=== PATIENT | female | born 1990 | race Asian ===

== ENCOUNTER 2016-12-04 18:20 | Inpatient (IN) | payer OTHER ==
[~2016-12-04] VITALS: Ht 144.8 cm; Wt 51.2 kg
[~2016-12-04 18:20] MED LIST: BC IMPLANT; LEVE500 PO
[2016-12-04 18:46] VITALS: BP 122/77; PULSE 99; RESP 14; TEMP 98.9; O2SAT 98
[2016-12-04] MEDS ORDERED: LEXA10TA PO (18:52)
[2016-12-04] MEDS ORDERED: [UNRECOGNIZED DRUG - REMARK] (18:53)
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
[2016-12-04 19:43] VITALS: BP 125/85; PULSE 94; RESP 14; O2SAT 99
[2016-12-04 20:18] LABS: AUTOMATED NEUTROPHIL # 5.6 TH/MM3 (1.8-7.7); BASOPHIL % 0.3 % (0.0-2.0); EOSINOPHIL % 0.3 % (0.0-4.0); HEMATOCRIT 37.1 % (35.0-46.0); LYMPH % 17.1 % (9.0-44.0); LYMPHOCYTE # 1.3 TH/MM3 (1.0-4.8); MEAN CELL VOLUME 76.4 FL (80.0-100.0); MEAN CORPUSCULAR HEMOGLOBIN 24.9 PG (27.0-34.0); MEAN CORPUSCULAR HGB CONC 32.6 % (32.0-36.0); MONO % 8.1 % (0.0-8.0); NEUT % 74.2 % (16.0-70.0); PLATELET COUNT 267 TH/MM3 (150-450); RED BLOOD COUNT 4.85 MIL/MM3 (4.00-5.30); RED CELL DISTRIBUTION WIDTH 18.8 % (11.6-17.2); WHITE BLOOD COUNT 7.5 TH/MM3 (4.0-11.0)
[2016-12-04 20:20] LABS: HEMO FLAGS AUTO DIFF
[2016-12-04 20:21] LABS: BACTERIA, URINE RARE /hpf; BLOOD, URINE LARGE (NEG); COMMENT (UR) CULTURE INDICATED; CULTURE IF INDICATED CULTURE INDICATED; GLUCOSE,URINE NEG (NEG); KETONE, URINE 10 mg/dL (NEG); MUCUS URINE MANY /lpf (OCC); NITRITE,URINE NEG (NEG); PH, URINE 5.5 (5.0-8.5); SQUAMOUS EPITHELIAL CELL URINE 15 /hpf (0-5); URINE COLOR YELLOW (YELLW/STRAW)
[2016-12-04 20:26] LABS: AMPHETAMINE, URINE NEG (NEG); BARBITURATES, URINE NEG (NEG); COCAINE, URINE NEG (NEG)
[2016-12-04 20:41] LABS: ANION GAP 9 MEQ/L (5-15)
[2016-12-04 20:45] LABS: ALKALINE PHOSPHATASE 66 U/L (45-117); ALT (GPT) 18 U/L (10-53); AST (GOT) 16 U/L (15-37); BICARBONATE 23.7 MEQ/L (21.0-32.0); BLOOD UREA NITROGEN 9 MG/DL (7-18); CHLORIDE 107 MEQ/L (98-107); GLOMERULAR FILTRATION RATE 59 ML/MIN (>89); POTASSIUM 3.9 MEQ/L (3.5-5.1); SODIUM (NA) 140 MEQ/L (136-145); TOTAL BILIRUBIN ADULT 0.4 MG/DL (0.2-1.0)
[2016-12-04] MEDS ORDERED: BACT800T5 PO (20:53)
[2016-12-04] MEDS ORDERED: SULFAMETHOXAZOLE-TRIMETHOPRIM DS 800-160 MG TAB PO ONE (21:00)
[2016-12-04 21:08] LABS: PLATELET ESTIMATE SMEAR NORMAL (NORMAL); PLATELET MORPHOLOGY NORMAL (NORMAL); SCAN/DIFF AUTO DIFF CONFIRMED
[2016-12-04 22:25] VITALS: BP 119/74; PULSE 94; RESP 16; O2SAT 96
[2016-12-04 23:01] VITALS: BP 105/55; PULSE 92; RESP 18
[2016-12-04] MEDS ORDERED: BENZTROPINE MESYLATE 1 MG TAB PO PRN (23:45)
[2016-12-04] MEDS ORDERED: MAGNESIUM HYDROXIDE SUSP 30 ML CUP PO PRN (23:45)
[2016-12-04] MEDS ORDERED: hydrOXYzine HCL 50 MG TAB PO PRN (23:45)
[2016-12-04] MEDS ORDERED: BENZTROPINE MESYLATE 2 MG/2 ML VIAL IM PRN (23:45)
[2016-12-04] MEDS ORDERED: diphenhydrAMINE HCL 50 MG CAP PO PRN (23:45)
[2016-12-04] MEDS ORDERED: ACETAMINOPHEN 325 MG TAB PO PRN (23:45)
[2016-12-04] MEDS ORDERED: ALUMINUM/MAGNESIUM/SIMETH 30 ML CUP PO PRN (23:45)
[2016-12-05 00:20] VITALS: PULSE 101; RESP 17; TEMP 98.2
[2016-12-05 05:02] VITALS: BP 105/55; PULSE 89; RESP 16; TEMP 98; O2SAT 97
[2016-12-05] MEDS: levETIRAcetam 500 MG TAB PO SCH ×2 (08:52→20:15)
[2016-12-05] MEDS: REMOVE OLD PATCH T-DERMAL SCH (08:53)
[2016-12-05] MEDS ORDERED: SULFAMETHOXAZOLE-TRIMETHOPRIM DS 800-160 MG TAB PO SCH (09:00)
[2016-12-05] MEDS: NICOTINE 21 MG/24 HR PATCH T-DERMAL SCH (09:00)
[2016-12-05] MEDS ORDERED: ESCITALOPRAM OXALATE 10 MG TAB PO SCH (09:00)
[2016-12-05 09:46] LABS: ANION GAP 10 MEQ/L (5-15); BICARBONATE 23.6 MEQ/L (21.0-32.0); BLOOD UREA NITROGEN 8 MG/DL (7-18); CHLORIDE 107 MEQ/L (98-107); GLOMERULAR FILTRATION RATE 62 ML/MIN (>89); HDL CHOLESTEROL 58.8 MG/DL (40.0-60.0); LDL CHOLESTEROL 103 MG/DL (0-99); POTASSIUM 3.4 MEQ/L (3.5-5.1); SODIUM (NA) 141 MEQ/L (136-145)
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
--- NOTE | 2016-12-05 15:06 | RADRPT ---
EXAM DATE/TIME: 12/05/2016 14:50 [facility] COMPARISON: HAND RIGHT COMPLETE ([id number]), October 19, 2016, 12:31. INDICATIONS : Chest pain. MEDICAL HISTORY : None. SURGICAL HISTORY : loop recorder. ENCOUNTER: Initial ACUITY: 1 day PAIN SCORE: 5/10 LOCATION: Bilateral chest FINDINGS: A single view of the chest demonstrates the lungs to be symmetrically aerated without evidence of mas s, infiltrate or effusion. The cardiomediastinal contours are unremarkable. Osseous structures are intact. Incidental note is made of a loop recorder. CONCLUSION: Incidental loop recorder overlying the chest. The lungs are clear. The exam is otherwise within reinier l limits. Xavier Oden MD on December 05, 2016 at 15:04 Board Certified Radiologist. This report was verified electronically.
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
[2016-12-05] MEDS ORDERED: POTASSIUM CHLORIDE 20 MEQ CONTROLLED RELEASE TAB PO ONE (16:00)
[2016-12-05 16:44] LABS: HEMOGLOBIN A1a 1.2 %; HEMOGLOBIN A1b 1.3 %; HEMOGLOBIN Ao 86.6 %; HEMOGLOBIN LA1C 1.9 %; HEMOGLOBIN P3 3.4 %
[2016-12-05 18:30] VITALS: BP 113/64; PULSE 90; RESP 16; TEMP 98.5; O2SAT 99
[2016-12-06 05:23] VITALS: BP 95/54; PULSE 86; RESP 18; TEMP 98.2; O2SAT 99
[2016-12-06] MEDS: NICOTINE 21 MG/24 HR PATCH T-DERMAL SCH (09:00)
[2016-12-06] MEDS: REMOVE OLD PATCH T-DERMAL SCH (09:00)
[2016-12-06] MEDS: ESCITALOPRAM OXALATE 20 MG TAB PO SCH (10:01)
[2016-12-06] MEDS: ARIPiprazole 2 MG TAB PO SCH (10:02)
[2016-12-06] MEDS: levETIRAcetam 500 MG TAB PO SCH ×2 (10:02→20:44)
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
[2016-12-06] MEDS ORDERED: PANT40TA3 PO (13:14)
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
[2016-12-06] MEDS: PANTOPRAZOLE SOD 40 MG DELAYED RELEASE TAB PO SCH (14:32)
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
[2016-12-07 06:08] VITALS: BP 94/56; PULSE 84; RESP 18; TEMP 98; O2SAT 99
[2016-12-07] MEDS: NICOTINE 21 MG/24 HR PATCH T-DERMAL SCH (09:00)
[2016-12-07] MEDS: REMOVE OLD PATCH T-DERMAL SCH (09:00)
[2016-12-07] MEDS: levETIRAcetam 500 MG TAB PO SCH ×2 (09:18→20:56)
[2016-12-07] MEDS: ARIPiprazole 2 MG TAB PO SCH (09:18)
[2016-12-07] MEDS: ESCITALOPRAM OXALATE 20 MG TAB PO SCH (09:19)
[2016-12-07] MEDS: PANTOPRAZOLE SOD 40 MG DELAYED RELEASE TAB PO SCH (09:19)
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
[2016-12-07 18:45] VITALS: BP 121/83; PULSE 93; RESP 16; TEMP 98
[2016-12-08 04:55] VITALS: BP 107/52; PULSE 79; RESP 18; TEMP 97.6
[2016-12-08] MEDS: PANTOPRAZOLE SOD 40 MG DELAYED RELEASE TAB PO SCH (08:18)
[2016-12-08] MEDS: ARIPiprazole 2 MG TAB PO SCH (08:18)
[2016-12-08] MEDS: HYDROCORTISONE 1% CREAM 30 GM TOPICAL SCH (08:18)
[2016-12-08] MEDS: levETIRAcetam 500 MG TAB PO SCH ×2 (08:18→21:14)
[2016-12-08] MEDS: ESCITALOPRAM OXALATE 20 MG TAB PO SCH (08:18)
[2016-12-08] MEDS: REMOVE OLD PATCH T-DERMAL SCH (08:20)
[2016-12-08] MEDS: NICOTINE 21 MG/24 HR PATCH T-DERMAL SCH (08:20)
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
[2016-12-08 18:15] VITALS: BP 96/53; PULSE 87; RESP 17; TEMP 99.9; O2SAT 96
[2016-12-09 04:53] VITALS: BP 103/56; PULSE 83; RESP 18; TEMP 97.4; O2SAT 96
[2016-12-09] MEDS: REMOVE OLD PATCH T-DERMAL SCH (09:00)
[2016-12-09] MEDS: NICOTINE 21 MG/24 HR PATCH T-DERMAL SCH (09:00)
[2016-12-09] MEDS: PANTOPRAZOLE SOD 40 MG DELAYED RELEASE TAB PO SCH (09:18)
[2016-12-09] MEDS: levETIRAcetam 500 MG TAB PO SCH ×2 (09:18→20:38)
[2016-12-09] MEDS: ARIPiprazole 2 MG TAB PO SCH (09:18)
[2016-12-09] MEDS: ESCITALOPRAM OXALATE 20 MG TAB PO SCH (09:18)
[2016-12-09] MEDS: HYDROCORTISONE 1% CREAM 30 GM TOPICAL SCH (09:18)
--- NOTE | 2016-12-09 13:38 | HHI.PYPN ---
Subjective Remarks Patient seen and examined with counselor and nurse. Chart reviewed. Case discussed with nursing staff who reports patient has been no behavioral problem. On my examination today, the patient reports that she is enjoying attending psychotherapy groups. She likes to hear how other people are coping with her problems. Her mood is described as okay and she denies any suicidal ideation. She is a little bit tired but she attributes this to the cold weather. She denies any side effects from medications. No other issues noted. Review of Systems Other Except as above, no physical complaints today. Objective Alert: Yes [place]: Person, Place, Date Mood: Calm Affect: Other (full and reactive) Memory Intact: Comment (intact) Hallucinations: Other (no AVH) Delusions: No Delusion Type: Other (no delusional material) Suicidal: Ideation (denies suicidal ideation) Homicidal: Ideation (no homicidal ideation) Insight/Judgement Fair Remarks Thought process linear. No abnormal motor movements noted. Labs Date/Time Procedure Status Source Growth 12/04/16 19:40 Urine Culture - Final Complete Urine Clean Catch 10-50,000 CFU/ML MIXED GRAM POSITIVE ... Labs reviewed. Vitals/IOs Vital Signs Date Time Temp Pulse Resp B/P Pulse Ox O2 Delivery O2 Flow Rate FiO2 12/09/16 04:53 97.4 83 18 103/56 96 Assessment & Plan Problem List: (1) Other recurrent depressive disorders ICD Code: F33.8 Assessment & Plan Continue Lexapro and Abilify as ordered. Check a TSH. Continue other medications and care as ordered. Justification for Cont. Inpt. Monitoring for impairments in safety. No evidence of any so far. Discharge Planning Monitor over the weekend. Counselor to call for collateral. Anticipate discharge Monday barring some clinical worsening. Encouraged patient to participate in psychotherapy after discharge and offer the depression support group we run here. Request HC Surrog/Guard Advoc?: No Jeancarlos Borges MD Dec 09, 2016 13:38
[2016-12-09 18:40] VITALS: BP 109/65; PULSE 102; RESP 18; TEMP 98; O2SAT 100
[2016-12-10 05:39] VITALS: BP 100/64; PULSE 86; RESP 16; TEMP 97.1; O2SAT 99
[2016-12-10 08:35] LABS: FREE T4 0.83 NG/DL (0.76-1.46)
[2016-12-10] MEDS: REMOVE OLD PATCH T-DERMAL SCH (09:00)
[2016-12-10] MEDS: NICOTINE 21 MG/24 HR PATCH T-DERMAL SCH (09:00)
[2016-12-10] MEDS: HYDROCORTISONE 1% CREAM 30 GM TOPICAL SCH (09:00)
[2016-12-10] MEDS: ESCITALOPRAM OXALATE 20 MG TAB PO SCH (09:45)
[2016-12-10] MEDS: PANTOPRAZOLE SOD 40 MG DELAYED RELEASE TAB PO SCH (09:45)
[2016-12-10] MEDS: levETIRAcetam 500 MG TAB PO SCH ×2 (09:45→21:04)
[2016-12-10] MEDS: ARIPiprazole 2 MG TAB PO SCH (09:45)
--- NOTE | 2016-12-10 15:04 | HHI.PYPN ---
Subjective Remarks Pt seen and discussed with staff. Pt reports that mood is improving since starting abilify. She denies SI/HI today. She has been attending psychotherapy groups. No medication side effects. Objective Alert: Yes [place]: Person, Place, Date Mood: Calm Affect: Other (full and reactive) Memory Intact: Comment (intact) Hallucinations: Other (no AVH) Delusions: No Delusion Type: Other (no delusional material) Suicidal: Ideation (denies suicidal ideation) Homicidal: Ideation (no homicidal ideation) Insight/Judgement fair Labs Test 12/10/16 07:26 Free Thyroxine 0.83 NG/DL Thyroid Stimulating Hormone 1.210 uIU/ML 3rd Gen Vitals/IOs Vital Signs Date Time Temp Pulse Resp B/P Pulse Ox O2 Delivery O2 Flow Rate FiO2 12/10/16 05:39 97.1 86 16 100/64 99 Intake and Output 12/09/16 12/09/16 12/10/16 08:00 16:00 00:00 Intake Total 720 ml Balance 720 ml Assessment & Plan Problem List: (1) Other recurrent depressive disorders ICD Code: F33.8 Assessment & Plan Continue current tx plan. Estimated LOS: days Justification for Cont. Inpt. monitoring for impairments in safety Request HC Surrog/Guard Advoc?: Yasmeen Abraham MD Dec 10, 2016 15:04
[2016-12-10 18:41] VITALS: BP 114/69; PULSE 96; RESP 16; TEMP 97.5; O2SAT 97
[2016-12-11 05:22] VITALS: BP 106/66; PULSE 82; RESP 16; TEMP 97.7
[2016-12-11] MEDS: REMOVE OLD PATCH T-DERMAL SCH (09:00)
[2016-12-11] MEDS: ESCITALOPRAM OXALATE 20 MG TAB PO SCH (09:00)
[2016-12-11] MEDS: ARIPiprazole 2 MG TAB PO SCH (09:00)
[2016-12-11] MEDS: PANTOPRAZOLE SOD 40 MG DELAYED RELEASE TAB PO SCH (09:00)
[2016-12-11] MEDS: HYDROCORTISONE 1% CREAM 30 GM TOPICAL SCH (09:00)
[2016-12-11] MEDS: NICOTINE 21 MG/24 HR PATCH T-DERMAL SCH (09:00)
[2016-12-11] MEDS: levETIRAcetam 500 MG TAB PO SCH ×2 (09:00→20:51)
--- NOTE | 2016-12-11 15:45 | HHI.PYPN ---
Subjective Remarks Pt seen and discussed with staff. She reports mood is improved. She states that she and parents and boyfriend have agreed that it is best that they separate and she move back in with her family. She states that she feels that this is the best plan for her and that she wants to focus on taking care of herself. No medication side effects. No SI/HI. Objective Alert: Yes [place]: Person, Place, Date Mood: Calm Affect: Other (full and reactive) Memory Intact: Comment (intact) Hallucinations: Other (no AVH) Delusions: No Delusion Type: Other (no delusional material) Suicidal: Ideation (denies suicidal ideation) Homicidal: Ideation (no homicidal ideation) Insight/Judgement poor Vitals/IOs Vital Signs Date Time Temp Pulse Resp B/P Pulse Ox O2 Delivery O2 Flow Rate FiO2 12/11/16 05:22 97.7 82 16 106/66 12/10/16 18:41 97 Assessment & Plan Problem List: (1) Other recurrent depressive disorders ICD Code: F33.8 Assessment & Plan Continue current tx plan. Estimated LOS: days Justification for Cont. Inpt. risk of decompensation Request HC Surrog/Guard Advoc?: No Yasmeen Smith MD Dec 11, 2016 15:45
[2016-12-11 18:15] VITALS: BP 105/68; PULSE 100; RESP 16; TEMP 98.4; O2SAT 99
[2016-12-12 04:45] VITALS: BP 104/57; PULSE 80; RESP 18; TEMP 97.3; O2SAT 99
[2016-12-12] MEDS: NICOTINE 21 MG/24 HR PATCH T-DERMAL SCH (09:00)
[2016-12-12] MEDS: REMOVE OLD PATCH T-DERMAL SCH (09:00)
[2016-12-12] MEDS: ARIPiprazole 2 MG TAB PO SCH (09:05)
[2016-12-12] MEDS: ESCITALOPRAM OXALATE 20 MG TAB PO SCH (09:05)
[2016-12-12] MEDS: PANTOPRAZOLE SOD 40 MG DELAYED RELEASE TAB PO SCH (09:05)
[2016-12-12] MEDS: levETIRAcetam 500 MG TAB PO SCH (09:05)
[2016-12-12] MEDS: HYDROCORTISONE 1% CREAM 30 GM TOPICAL SCH (09:08)
[2016-12-12] MEDS ORDERED: ABIL2TAB2 PO (14:42)
[2016-12-12] MEDS ORDERED: ESCI20TA PO (14:42)
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
[2016-12-12 17:13] VITALS: BP 116/69; PULSE 83; RESP 17; TEMP 98.3; O2SAT 99
== END 2016-12-12 18:30 | disposition home or self-care (01) | DRG 885 ==
LOC: NEPA 18:20 → NEDA 23:39 → H260 12-05 00:05
PROVIDERS: ADMIT Psychiatry & Neurology Psychiatry; ATTEND Psychiatry & Neurology Psychiatry
DX: F33.8 Other recurrent depressive disorders (principal); R45.851 Suicidal ideations; G40.909 Epilepsy, unspecified, not intractable, without status epilepticus; E87.6 Hypokalemia; Z91.14 Patient's other noncompliance with medication regimen; K21.9 Gastro-esophageal reflux disease without esophagitis; F41.9 Anxiety disorder, unspecified; R42 Dizziness and giddiness; Z95.818 Presence of other cardiac implants and grafts; Z91.5 Personal history of self-harm; S20.219A Contusion of unspecified front wall of thorax, initial encounter; Y93.89 Activity, other specified; Y92.9 Unspecified place or not applicable
CPT/HCPCS: 71010; 80048; 80053; 80061; 80177; 80307; 80320; 81001; 83036; 83735; 84439; 84443; 84703; 85025; 87086; 99285

== ENCOUNTER 2018-04-02 00:05 | Emergency (ER) | payer OTHER ==
[~2018-04-02] VITALS: Ht 147.3 cm; Wt 55.0 kg
[~2018-04-02 00:05] MED LIST changes: +ARIP2 PO; -BC IMPLANT; +ESCI20TA PO; +PANT40TA3 PO; +[UNRECOGNIZED DRUG - REMARK]
--- NOTE | 2018-04-02 00:17 | PD ---
HPI Chief Complaint: ba Time Seen by Provider: 00:16 Travel History International Travel<30 days: No Contact w/Intl Traveler<30days: No Traveled to known affect area: No History of Present Illness HPI 27-year-old female presents under Barnhart act initiated by the Police Department. According to her paperwork the patient recently started dating someone online. She felt ignored by this person and she reportedly sent him suicidal text in which she said that she had a knife and she was going kill herself. She did cause herself superficial lacerations to the right arm. She reports that she did this because makes her feel better when she cut herself. Symptoms are moderate, aggravated by feelings of depression with no alleviating factors. Denies any drug or alcohol use. No other complaints at this time. She does report a history of depression for which she was previously prescribed Lexapro and Abilify but she ran out of them at an unknown time. Last tetanus vaccination unknown. PFSH Past Medical History Depression: Yes Cancer: No Cardiovascular Problems: No Cerebrovascular Accident: No Diabetes: No Diminished Hearing: No Endocrine: No Genitourinary: No Headaches: No Immune Disorder: No Musculoskeletal: No Neurologic: Yes Psychiatric: Yes (depression, suicide attempt, history of self-harm) Reproductive: No Respiratory: No Seizures: Yes (takes Keppra) Past Surgical History Abdominal Surgery: No Body Medical Devices: Loop recorder near heart and tubes in ears Cardiac Surgery: No Ear Surgery: Yes (Tubes in ears) Endocrine Surgery: No Eye Surgery: No Genitourinary Surgery: No Gynecologic Surgery: No Oral Surgery: No Thoracic Surgery: Yes (Has a loop near her heart) Other Surgery: Yes (TUBES IN EARS) Social History Alcohol Use: Yes (OCCASIONAL) Tobacco Use: No Substance Use: Yes Allergies-Medications (Allergen,Severity, Reaction): Coded Allergies: No Known Allergies (Unverified Adverse Reaction, Unknown, 04/02/18) Reported Meds & Prescriptions Reported Meds & Active Scripts Active Escitalopram (Escitalopram Oxalate) 20 Mg Tab 20 Mg PO DAILY 15 Days Abilify (Aripiprazole) 2 Mg Tab 2 Mg PO DAILY 15 Days Reported [Bc Implanted] Unknown Dose Keppra (Levetiracetam) 500 Mg Tab 500 Mg PO BID Review of Systems Except as stated in HPI: all other systems reviewed are Neg Physical Exam Narrative GENERAL: Well-developed well-nourished female no acute distress SKIN: Warm and dry. Superficial linear abrasions and scars noted to the right forearm. HEAD: Atraumatic. Normocephalic. EYES: Pupils equal and round. No scleral icterus. No injection or drainage. ENT: No nasal bleeding or discharge. Mucous membranes pink and moist. NECK: Trachea midline. No JVD. CARDIOVASCULAR: Regular rate and rhythm. No murmur appreciated. RESPIRATORY: No accessory muscle use. Clear to auscultation. Breath sounds equal bilaterally. GASTROINTESTINAL: Abdomen soft, non-tender, nondistended. Hepatic and splenic margins not palpable. MUSCULOSKELETAL: No obvious deformities. No clubbing. No cyanosis. No edema. NEUROLOGICAL: Awake and alert. No obvious cranial nerve deficits. Motor grossly within normal limits. Normal speech. PSYCHIATRIC: Appropriate mood and affect; insight and judgment normal. Data Data Last Documented VS Vital Signs Date Time Temp Pulse Resp B/P (MAP) Pulse Ox O2 Delivery O2 Flow Rate FiO2 04/02/18 00:24 98.1 104 16 128/77 (94) 98 Orders Orders Complete Blood Count With Diff (04/02/18 00:43) Comprehensive Metabolic Panel (04/02/18 00:43) Thyroid Stimulating Hormone (04/02/18 00:43) Psych Screen (04/02/18 00:43) Drug Screen, Random Urine (04/02/18 00:43) Alcohol (Ethanol) (04/02/18 00:43) Salicylates (Aspirin) (04/02/18 00:43) Tylenol (Acetaminophen) (04/02/18 00:43) Ed Urine Pregnancytest Poc (04/02/18 00:43) Tetanus/Diphtheria Tox Adult (Tetanus/Di (04/02/18 00:45) Labs Laboratory Tests Test 04/02/18 01:00 White Blood Count 8.2 TH/MM3 Red Blood Count 4.79 MIL/MM3 Hemoglobin 13.7 GM/DL Hematocrit 40.5 % Mean Corpuscular Volume 84.5 FL Mean Corpuscular Hemoglobin 28.6 PG Mean Corpuscular Hemoglobin Concent 33.9 % Red Cell Distribution Width 13.3 % Platelet Count 331 TH/MM3 Mean Platelet Volume 8.1 FL Neutrophils (%) (Auto) 71.4 % Lymphocytes (%) (Auto) 20.2 % Monocytes (%) (Auto) 7.4 % Eosinophils (%) (Auto) 0.5 % Basophils (%) (Auto) 0.5 % Neutrophils # (Auto) 5.9 TH/MM3 Lymphocytes # (Auto) 1.7 TH/MM3 Monocytes # (Auto) 0.6 TH/MM3 Eosinophils # (Auto) 0.0 TH/MM3 Basophils # (Auto) 0.0 TH/MM3 CBC Comment DIFF FINAL Differential Comment Blood Urea Nitrogen 7 MG/DL Creatinine 0.90 MG/DL Random Glucose 82 MG/DL Total Protein 8.5 GM/DL Albumin 4.3 GM/DL Calcium Level 9.4 MG/DL Alkaline Phosphatase 100 U/L Aspartate Amino Transf (AST/SGOT) 14 U/L Alanine Aminotransferase (ALT/SGPT) 20 U/L Total Bilirubin 0.6 MG/DL Sodium Level 139 MEQ/L Potassium Level 3.5 MEQ/L Chloride Level 107 MEQ/L Carbon Dioxide Level 20.5 MEQ/L Anion Gap 12 MEQ/L Estimat Glomerular Filtration Rate 76 ML/MIN Thyroid Stimulating Hormone 3rd Gen 1.420 uIU/ML Salicylates Level LESS THAN 1.7 MG/DL Urine Opiates Screen NEG Acetaminophen Level LESS THAN 2.0 MCG/ML Urine Barbiturates Screen NEG Urine Amphetamines Screen NEG Urine Benzodiazepines Screen NEG Urine Cocaine Screen NEG Urine Cannabinoids Screen NEG Ethyl Alcohol Level LESS THAN 3 MG/DL MDM Medical Decision Making Medical Screen Exam Complete: Yes Emergency Medical Condition: Yes Medical Record Reviewed: Yes Differential Diagnosis Major depressive disorder, depressive disorder not otherwise specified, acute psychosis, adjustment reaction, substance-induced mood disorder, bipolar disorder Narrative Course 27-year-old female presents under Barnhart act for psychiatric evaluation. Tetanus status updated. Mental health screening discussed with the patient. Psychiatric screen ordered. Lab work has been reviewed. The patient is medically cleared for psychiatric disposition. Diagnosis Primary Impression: Medical clearance for psychiatric admission Gigi De Paz Apr 02, 2018 00:17
[2018-04-02 00:24] VITALS: BP 128/77; PULSE 104; RESP 16; TEMP 98.1; O2SAT 98
[2018-04-02] MEDS ORDERED: TETANUS/DIPHTHERIA TOXOID ADULT 0.5 ML VIAL IM ONE (00:45)
[2018-04-02 01:18] LABS: AUTOMATED NEUTROPHIL # 5.9 TH/MM3 (1.8-7.7); BASOPHIL % 0.5 % (0.0-2.0); EOSINOPHIL % 0.5 % (0.0-4.0); HEMATOCRIT 40.5 % (35.0-46.0); HEMOGLOBIN 13.7 GM/DL (11.6-15.3); LYMPH % 20.2 % (9.0-44.0); LYMPHOCYTE # 1.7 TH/MM3 (1.0-4.8); MEAN CELL VOLUME 84.5 FL (80.0-100.0); MEAN CORPUSCULAR HEMOGLOBIN 28.6 PG (27.0-34.0); MEAN CORPUSCULAR HGB CONC 33.9 % (32.0-36.0); MEAN PLATELET VOLUME 8.1 FL (7.0-11.0); MONO % 7.4 % (0.0-8.0); MONOCYTE # 0.6 TH/MM3 (0-0.9); NEUT % 71.4 % (16.0-70.0); PLATELET COUNT 331 TH/MM3 (150-450); RED BLOOD COUNT 4.79 MIL/MM3 (4.00-5.30); RED CELL DISTRIBUTION WIDTH 13.3 % (11.6-17.2); WHITE BLOOD COUNT 8.2 TH/MM3 (4.0-11.0)
[2018-04-02 01:40] LABS: ALBUMIN 4.3 GM/DL (3.4-5.0); AST (GOT) 14 U/L (15-37); BICARBONATE 20.5 MEQ/L (21.0-32.0); BLOOD UREA NITROGEN 7 MG/DL (7-18); CALCIUM 9.4 MG/DL (8.5-10.1); CHLORIDE 107 MEQ/L (98-107); GLOMERULAR FILTRATION RATE 76 ML/MIN (>89); GLUCOSE,RANDOM 82 MG/DL (74-106); SODIUM (NA) 139 MEQ/L (136-145)
[2018-04-02 01:52] LABS: ALKALINE PHOSPHATASE 100 U/L (45-117); ALT (GPT) 20 U/L (10-53); TOTAL BILIRUBIN ADULT 0.6 MG/DL (0.2-1.0); TOTAL PROTEIN 8.5 GM/DL (6.4-8.2)
[2018-04-02 01:54] LABS: ACETAMINOPHEN LESS THAN 2.0 MCG/ML (10.0-30.0)
[2018-04-02 08:59] VITALS: BP 107/66; PULSE 94; RESP 16; TEMP 97.8; O2SAT 98
[2018-04-02 13:04] VITALS: BP 105/63; PULSE 92; RESP 17; O2SAT 97
[2018-04-02 17:00] VITALS: BP 108/68; PULSE 90; RESP 20; TEMP 98.9; O2SAT 100
[2018-04-02 23:52] VITALS: BP 108/57; PULSE 85; RESP 16; O2SAT 99
--- NOTE | 2018-04-03 10:32 | PD ---
Physical Exam Date Seen by Provider: Apr 03, 2018 Time Seen by Provider: 10:31 Narrative For full H&P please see previous providers notes. Patient presented to the emergency department under [place] act, she was seen and evaluated and then medically cleared. She was then seen and evaluated by the psychiatrist, Barnhart act was lifted. Please see their documentation. Data Data Last Documented VS Vital Signs Date Time Temp Pulse Resp B/P (MAP) Pulse Ox O2 Delivery O2 Flow Rate FiO2 04/02/18 23:52 85 16 108/57 (74) 99 Room Air 04/02/18 17:00 98.9 Orders Orders Complete Blood Count With Diff (04/02/18 00:43) Comprehensive Metabolic Panel (04/02/18 00:43) Thyroid Stimulating Hormone (04/02/18 00:43) Psych Screen (04/02/18 00:43) Drug Screen, Random Urine (04/02/18 00:43) Alcohol (Ethanol) (04/02/18 00:43) Salicylates (Aspirin) (04/02/18 00:43) Tylenol (Acetaminophen) (04/02/18 00:43) Ed Urine Pregnancytest Poc (04/02/18 00:43) Tetanus/Diphtheria Tox Adult (Tetanus/Di (04/02/18 00:45) Diet Regular Basic (04/02/18 Breakfast) Diet Regular Basic (04/02/18 Lunch) Diet Regular Basic (04/02/18 Dinner) Diet Regular Basic (04/03/18 Breakfast) Ed Discharge Order (04/03/18 10:30) Labs Laboratory Tests Test 04/02/18 01:00 White Blood Count 8.2 TH/MM3 Red Blood Count 4.79 MIL/MM3 Hemoglobin 13.7 GM/DL Hematocrit 40.5 % Mean Corpuscular Volume 84.5 FL Mean Corpuscular Hemoglobin 28.6 PG Mean Corpuscular Hemoglobin Concent 33.9 % Red Cell Distribution Width 13.3 % Platelet Count 331 TH/MM3 Mean Platelet Volume 8.1 FL Neutrophils (%) (Auto) 71.4 % Lymphocytes (%) (Auto) 20.2 % Monocytes (%) (Auto) 7.4 % Eosinophils (%) (Auto) 0.5 % Basophils (%) (Auto) 0.5 % Neutrophils # (Auto) 5.9 TH/MM3 Lymphocytes # (Auto) 1.7 TH/MM3 Monocytes # (Auto) 0.6 TH/MM3 Eosinophils # (Auto) 0.0 TH/MM3 Basophils # (Auto) 0.0 TH/MM3 CBC Comment DIFF FINAL Differential Comment Blood Urea Nitrogen 7 MG/DL Creatinine 0.90 MG/DL Random Glucose 82 MG/DL Total Protein 8.5 GM/DL Albumin 4.3 GM/DL Calcium Level 9.4 MG/DL Alkaline Phosphatase 100 U/L Aspartate Amino Transf (AST/SGOT) 14 U/L Alanine Aminotransferase (ALT/SGPT) 20 U/L Total Bilirubin 0.6 MG/DL Sodium Level 139 MEQ/L Potassium Level 3.5 MEQ/L Chloride Level 107 MEQ/L Carbon Dioxide Level 20.5 MEQ/L Anion Gap 12 MEQ/L Estimat Glomerular Filtration Rate 76 ML/MIN Thyroid Stimulating Hormone 3rd Gen 1.420 uIU/ML Salicylates Level LESS THAN 1.7 MG/DL Urine Opiates Screen NEG Acetaminophen Level LESS THAN 2.0 MCG/ML Urine Barbiturates Screen NEG Urine Amphetamines Screen NEG Urine Benzodiazepines Screen NEG Urine Cocaine Screen NEG Urine Cannabinoids Screen NEG Ethyl Alcohol Level LESS THAN 3 MG/DL [place] Medical Record Reviewed: Yes Supervised Visit with SRI: No Narrative Course Barnhart act was lifted, patient will be discharged home. Patient was diagnosed with adjustment disorder. She is to follow-up with her primary doctor and therapist. Diagnosis Primary Impression: Adjustment disorder Qualified Codes: F43.20 - Adjustment disorder, unspecified Referrals: [facility] (Out patient) 1 day Patient Instructions: General Instructions Additional Instruction: Return to emergency department immediately for any new or worsening symptoms Follow-up at [facility] Med/Other Pt SpecificInfo: No Change to Meds Disposition: 01 DISCHARGE HOME Condition: Stable HardyLu [facility] Apr 03, 2018 10:32
--- NOTE | 2018-04-03 10:33 | PD ---
History of Present Illness Chief Complaint: Psychiatric Symptoms Time Seen by Provider: 10:10 Travel History International Travel<30 Days: No Contact w/Intl Traveler<30days: No Known affected area: No Legal Status Legal Status: Barnhart Act Barnhart Act Signed By: Yasmani Rojo History of Present Illness: History of Present Illness HPI 27-year-old, single female with history of depression, previous history of suicidal gesture by attempting to drive car unto a tree who presents under Barnhart act initiated by the [employer]. According to her paperwork the patient recently started dating someone online. She felt ignored by this person and she reportedly sent him suicidal text in which she said that she had a knife and she was going kill herself. She did cause herself superficial lacerations to the right arm but states that she did this because she wanted to get a reaction out of him. She also reports that she did this because it makes her feel better when she cut herself. Patient was monitor and secure environment and presented no further suicidality and no behavioral concerns Patient is seen. EMR reviewed. Patient was last admitted to inpatient psychiatric unit in November 2016 for suicidal ideation as well. She is alert, oriented, engaging and cooperative. Her speech is clear and logical and of normal tone. There is no evidence of no psychosis. Denies any hallucinations, delusions or paranoia. The patient mood is depressed. She states that she is not going to harm herself and is not suicidal or homicidal. She states that she would not harm herself because "my family loves me, I want to get better." Since being here under the Barnhart act the patient has had communication with her parents and they have formulated a plan in which she will go and stay with them until she gets back on medications and on treatment. PFSH Past Medical History Anxiety: Yes Depression: Yes Cancer: No Cardiovascular Problems: No Cerebrovascular Accident: No Diabetes: No Diminished Hearing: No Endocrine: No Genitourinary: No Headaches: No Immune Disorder: No Musculoskeletal: No Neurologic: Yes Psychiatric: Yes (depression, suicide attempt, history of self-harm) Reproductive: No Respiratory: No Seizures: Yes (takes Keppra) ?: Not LMP: 3 weeks ago. Past Surgical History Abdominal Surgery: No Body Medical Devices: Loop recorder near heart and tubes in ears Cardiac Surgery: No Ear Surgery: Yes (Tubes in ears) Endocrine Surgery: No Eye Surgery: No Genitourinary Surgery: No Gynecologic Surgery: No Oral Surgery: No Thoracic Surgery: Yes (Has a loop near her heart) Other Surgery: Yes (TUBES IN EARS) Psychiatric History Psychiatric History Hx Psychiatric Treatment: WAS ADMITTED [facility] TO THE 2016. HX of 2 previous suicide gesture by attempting to drive her car into a tree. History of self-injurious behavior by scratching herself. Currently not taking medication. History of Inpatient Treatment: Yes Guns or firearms in home: No Social History Single, never . Reports she was adopted at age 6. Working at [employer] for several months and enjoys her job. Reports no history of abuse. Hx Alcohol Use: Yes (OCCASIONAL) Hx Tobacco Use: Yes Hx Substance Use: No Substance Use Type: Alcohol, Marijuana Hx of Substance Use Treatment: No Family Psychiatric History Negative Allergies-Medications (Allergen,Severity, Reaction): Coded Allergies: No Known Allergies (Unverified Adverse Reaction, Unknown, 04/02/18) Reported Meds & Prescriptions Reported Meds & Active Scripts Active Escitalopram (Escitalopram Oxalate) 20 Mg Tab 20 Mg PO DAILY 15 Days Abilify (Aripiprazole) 2 Mg Tab 2 Mg PO DAILY 15 Days Reported [Bc Implanted] Unknown Dose Keppra (Levetiracetam) 500 Mg Tab 500 Mg PO BID Review of Systems Psychiatric: COMPLAINS OF: Depression Except as stated in HPI: all other systems reviewed are Neg Mental Status Examination Appearance: Disheveled Consciousness: Alert Orientation: x4 Motor Activity: Normal gait Speech: Unremarkable Language: Adequate Fund of Knowledge: Adequate Attention and Concentration: Adequate Memory: Unremarkable Mood: Appropriate Affect: Appropriate Thought Process & Associations: Intact, Logical, Goal directed Thought Content: Appropriate Hallucination Type: None Delusion Type: None Suicidal Ideation: No Suicidal Plan: No Suicidal Intention: No Homicidal Ideation: No Homicidal Plan: No Homicidal Intention: No Insight: Fair Judgment: Impulsive MDM Medical Decision Making Medical Record Reviewed: Yes Assessment/Plan History of Present Illness HPI 27-year-old, single female with history of depression, previous history of suicidal gesture by attempting to drive car unto a tree who presents under Barnhart act initiated by the Police Department. The report alleges that the patient sent text messages to her boyfriend indicating that she had a knife in her hand and wanted to kill herself. The patient self-inflicted a very superficial scratch to her left arm. She denies that this was a suicidal attempt and states that she wanted to get his attention and that she also has a history of self-injurious behavior and engages in this behavior in order to release stress. The patient was monitored here in [facility] and presented no suicidality. She has formulated a plan with her parents for staying with them until she gets back in treatment. The patient plans on contacting a outpatient provider as well as contacting a therapist to begin therapy. She denies any suicidal or homicidal ideation. She is jovanny for safety. She is future oriented with adequate protective factors. The Barnhart act will be lifted. Psychiatric clear for discharge from the ED. Orders Orders Diet Regular Basic (04/02/18 Lunch) Diet Regular Basic (04/02/18 Dinner) Diet Regular Basic (04/03/18 Breakfast) Ed Discharge Order (04/03/18 10:30) Results Vital Signs Date Time Temp Pulse Resp B/P (MAP) Pulse Ox O2 Delivery O2 Flow Rate FiO2 04/02/18 23:52 85 16 108/57 (74) 99 Room Air 04/02/18 17:00 98.9 90 20 108/68 (81) 100 Room Air 04/02/18 13:04 92 17 105/63 (77) 97 Room Air Diagnosis Primary Impression: Medical clearance for psychiatric admission Additional Impression: Adjustment reaction Psychiatrically Cleared: Yes Departure Forms: Tests/Procedures Patient Instructions: General Instructions Med/ Other Pt Specific Info: No Meds Exist/No RX given Disposition: 01 DISCHARGE HOME Condition: Stable Problem Qualifiers Additional Impression: Adjustment reaction Qualified Codes: F43.21 - Adjustment disorder with depressed mood Nicole Seals Apr 03, 2018 10:33
== END 2018-04-03 10:58 | disposition home or self-care (01) ==
LOC: NEPD 00:05 → NEPJ 04-03 10:58
DX: F43.21 Adjustment disorder with depressed mood (principal); Z79.899 Other long term (current) drug therapy; Z91.5 Personal history of self-harm
CPT/HCPCS: 80053; 80307; 84443; 84703; 85025; 99284